=== PATIENT | male | born 1975 | race Caucasian/White ===

== ENCOUNTER 2022-07-22 08:36 | Outpatient (CLI) | payer OTHER, SELFPAY ==
[2022-07-22 12:31] LABS: Albumin* 4.1 g/dL (3.3-5.0); Chloride* 107 mmol/L (96-114)
[2022-07-22 12:32] LABS: Sodium* 136 mmol/L (135-149)
[2022-07-22 12:34] LABS: Bilirubin Total* 0.5 mg/dL (0.1-1.5); Blood Urea Nitrogen* 21 mg/dL (5-24); Carbon Dioxide* 25 mmol/L (20-32); Cholesterol* 254 mg/dL (90-199); Estimated Glomerular Filt Rate 92 ml/min; Total Protein* 6.5 g/dL (6.0-8.3)
[2022-07-22 12:35] LABS: Alanine Aminotransferase* 29 U/L (4-50); Alkaline Phosphatase* 73 U/L (40-150); Aspartate Amino Transferase* 44 U/L (12-35); Calcium* 9.1 mg/dL (8.4-10.6); Glucose* 105 mg/dL (60-115); HDL Cholesterol* 61 mg/dL (>=40); LDL Cholesterol Calculated 175 mg/dL (<100); Triglycerides* 88 mg/dL (40-149)
== END 2022-07-22 08:37 | disposition home or self-care (01) ==
PROVIDERS: PCP Family Medicine; Visit Provider Family Medicine
DX: Z00.00 Encounter for general adult medical examination without abnormal findings (principal); Z13.1 Encounter for screening for diabetes mellitus; Z13.6 Encounter for screening for cardiovascular disorders
CPT/HCPCS: 80053; 80061

== ENCOUNTER 2022-08-20 07:45 | Outpatient (CLI) | payer OTHER, SELFPAY | END 2022-08-20 07:46 | disposition home or self-care (01) | LOC: OP CLINIC 07:46 | PROVIDERS: PCP Family Medicine; Visit Provider Surgery | DX: Z12.11 Encounter for screening for malignant neoplasm of colon (principal); K63.5 Polyp of colon; Z80.0 Family history of malignant neoplasm of digestive organs | CPT/HCPCS: 45381; 45385; 88305; 99153; J1200; J2250; J3010 ==

== ENCOUNTER 2022-11-10 08:44 | Emergency (ER) | payer OTHER, SELFPAY ==
[2022-11-10 08:51] VITALS: BP 140/83; PULSE 70; TEMP 35.8; O2SAT 97; BMI 32.3
--- NOTE | 2022-11-10 09:10 | CRLHL7_ITS ---
For Patients: As a result of the Cures Act, medical imaging exams and procedure reports are released immediately into your electronic medical record. You may view this report before your referring provider. If you have questions, please contact your health care provider. INDICATION: Food stuck COMPARISON: None TECHNIQUE: Two views of the chest were acquired FINDINGS: TUBES AND LINES: None. HEART AND MEDIASTINUM: The heart size is normal. The mediastinal contour appears normal for patient age. LUNGS AND PLEURAL SPACES: The lungs appear normal.The pleural spaces are unremarkable. OSSEOUS STRUCTURES: Postoperative changes of the spine. No acute osseous findings. SOFT TISSUES: No visible foreign body regarding the possibility of aspirated or stuck food IMPRESSION: No evidence of active pulmonary disease. Dictated by Zan Thorpe MD @ 11/10/2022 9:30:37 AM (Electronically Signed)
[2022-11-10 09:29] LABS: Hematocrit 45.1 % (37.0-53.0); Hemoglobin* 14.6 gm/dL (13.5-17.5); Mean Corpuscular HGB Conc 32 gm/dL (32-36); Mean Corpuscular Hemoglobin 28 pg (26-34); Mean Corpuscular Volume 87 fL (80-100); Platelet Count* 211 K/uL (140-440); Red Blood Count 5.16 m/uL (4.30-5.90); White Blood Count* 8.02 K/uL (4.50-11.00)
[2022-11-10 09:30] LABS: Basophils Percent Auto 0.5 % (0.0-3.0); Eosinophils Percent Auto 1.5 % (0.0-7.0); Immature Granulocytes Pct Auto 0.1 %; Monocytes Percent Auto 6.1 % (0.0-11.0); Neutrophils Percent Auto 74.8 % (42.0-72.0); RDW Coefficient of Variation % 13.2 % (11.5-15.5); Slide Review Reflex No
[2022-11-10] MEDS: 0.9 % SODIUM CHLORIDE 1000 ml 1,000 ML IV (09:36)
[2022-11-10 09:46] VITALS: PULSE 88; O2SAT 98
[2022-11-10 09:54] LABS: Chloride* 109 mmol/L (96-114)
[2022-11-10 09:55] LABS: Albumin* 4.6 g/dL (3.3-5.0); Potassium* 4.4 mmol/L (3.6-5.1); Sodium* 142 mmol/L (135-149)
[2022-11-10 09:57] LABS: Carbon Dioxide* 25 mmol/L (20-32); Est. Creatinine Clearance* 80.64; Estimated Glomerular Filt Rate 92 ml/min
[2022-11-10 09:58] LABS: Alanine Aminotransferase* 24 U/L (4-50); Alkaline Phosphatase* 71 U/L (40-150); Aspartate Amino Transferase* 35 U/L (12-35); Bilirubin Direct* 0.2 mg/dL (0.0-0.5); Bilirubin Total* 0.6 mg/dL (0.1-1.5); Blood Urea Nitrogen* 13 mg/dL (5-24); Calcium* 9.1 mg/dL (8.4-10.6); Glucose* 108 mg/dL (60-115); Total Protein* 7.5 g/dL (6.0-8.3)
[2022-11-10 10:02] LABS: PCR FLU A Negative PCR FLU A (Negative); PCR FLU B Negative PCR FLU B (Negative); PCR RSV Negative PCR RSV (Negative)
[2022-11-10 10:04] LABS: INR 0.92 (0.91-1.10); Prothrombin Time 12.9 Seconds
[2022-11-10 10:04] LABS: SARS PCR* Negative SARS-CoV-2 (Negative)
[2022-11-10 10:05] LABS: Partial Thromboplastin Time* 27 Seconds (23-33)
[2022-11-10 10:14] VITALS: PULSE 64; O2SAT 98
[2022-11-10] MEDS: SIMETHICONE/SOD BICARB/CIT AC 1 EACH GRAN.EF.PK PO (11:11)
--- NOTE | 2022-11-10 11:11 | ED.NURSE ---
Gave pt coca cola to try and drink small sips. Pt spit coca cola back up. Pt took EZ gas with small amount of water, dislodged and swallowed food. Able to take water and swallow without issue now. notified.
[2022-11-10 12:00] VITALS: BP 126/84; PULSE 67; O2SAT 98
--- NOTE | 2022-11-10 16:31 | ED.ABDPAIN ---
HPI - Abdominal Pain General Date Seen: 11/10/22 Chief Complaint: Difficulty Swallowing Stated Complaint: Foreign object in esophagus Time Seen by Provider: 11/10/22 09:10 Source: patient Mode of arrival: ambulatory Limitations: no limitations History of Present Illness HPI narrative: Patient presents here after eating some pork last night, he feels a got stuck in his esophagus, he cannot swallow since this occurred, is spitting up all his spit. He has had this happen a couple times in the past, he has always been able after approximately 1 hour maybe drinking a little bit of Coke to pass it. This time however that he feels he cannot. He he cannot even drink water. History of heartburn, he does not use tobacco or tobacco products, uses occasional social drinking on the weekends, but not to excess. No previous history of upper endoscopy done. No history of weight loss fevers chills, is no current abdominal pain Related Data Previous Rx's Medication Instructions Recorded diazepam 5 mg tablet (Valium) 5 mg PO ONCE PRN anxiety #1 tab 08/05/22 Allergies Allergy/AdvReac Type Severity Reaction Status Date / Time Penicillins Allergy Verified 08/21/22 09:04 Review of Systems Status of ROS Reports: 10 or more systems reviewed and unremarkable except as noted in History and below PFSH PFS Medical History Hyperlipidemia Surgical History History of spinal fusion S/P ORIF (open reduction internal fixation) fracture S/P vasectomy Social History Narrative: The patient drinks alcohol on the weekends. He works construction. Smoking Status: Former smoker How often do you have a drink containing alcohol: 2-3 times a week How many standard drinks containing alcohol do you have on a typical day: 3 or 4 How often do you have six or more drinks on one occasion: Never AUDIT-C Alcohol total score: 4 Non-prescribed substance use: denies use Exam Narrative: Exam Narrative: Patient is seen in room 1, he is in no apparent distress. He is however spitting up, saliva. That is clear. Patient is speaking normally, no problem with slurring words, oriented x3. Head eyes ears nose and throat exam show equal pupils, no scleral icterus, extraocular muscles are normal, no facial droop, speech is normal, trachea normal and midline. Thyroid normal midline palpable not enlarged. Chest shows symmetrical rise bilaterally, normal auscultation with no wheezes, no increased work of breathing, no overt bruising or lesions seen, no tenderness is noted on auscultation. Heart sounds normal with no S3-S4 no murmurs clicks or gallops. Abdomen shows no obvious masses or hepatosplenomegaly, no organomegaly, bowel sounds are normal in all quadrants. No tenderness is noted also in all quadrants. Upper and lower extremities show normal power, normal range of motion, pulses are normal, sensations normal, fine motor movements are normal, pelvis is stable to rocking. Cervical spine shows normal range of motion, and palpably not tender. Thoracic spine shows normal range of motion, and palpably not tender, lumbar spine shows no tenderness to palpation percussion and is otherwise normal range of motion. Skin shows no rashes, petechiae or eccymosis. Const: Vital Signs, click to edit/add: Vital Signs - 24 hr 11/10/22 08:51 11/10/22 09:46 11/10/22 10:14 Temperature 96.5 F L Pulse Rate [Pulse Oximeter] 70 88 64 Blood Pressure [Ri t Upper Arm] 140/83 H Pulse Oximetry 97 98 98 Oxygen Delivery Me thod Room Air Room Air Room Air 11/10/22 12:00 Temperature Pulse Rate [Pulse Oximeter] 67 Blood Pressure [Ri ght Upper Arm] 126/84 Pulse Oximetry 98 Oxygen Delivery Me thod Room Air Course Course Hospital Course: IV was started, he receives some IV fluids, we gave him nitroglycerin x1, and some pop rocks. This call assist him to be able to swallow, he was eating, some bread, crackers, and drinking water without problems. I did talk to Dr. Polanco, from General surgery, she recommended sent for an endoscopy, I will place him on [facility] also. I explained to the patient, he needs to have the upper endoscopy for possible dilatation, order rule out carcinoma, is chronic heartburn can cause some bad issues. Vital Signs Vital signs: Initial Vital Signs Temperature 96.5 F L 11/10/22 08:51 Temperature Source Temporal Artery Scan 11/10/22 08:51 Pulse Rate 70 11/10/22 08:51 Blood Pressure 140/83 H 11/10/22 08:51 Blood Pressure Mean 102 11/10/22 08:51 Blood Pressure Position Sitting 11/10/22 08:51 Pulse Oximetry 97 11/10/22 08:51 Oxygen Delivery Method 11/10/22 08:51 Vital Signs Temperature 96.5 F L 11/10/22 08:51 Pulse Rate 70 11/10/22 08:51 Blood Pressure 140/83 H 11/10/22 08:51 Pulse Oximetry 97 11/10/22 08:51 Oxygen Delivery Method 11/10/22 08:51 Temperature 96.5 F L 11/10/22 08:51 Pulse Rate 67 11/10/22 12:00 Blood Pressure 126/84 11/10/22 12:00 Pulse Oximetry 98 11/10/22 12:00 Oxygen Delivery Method 11/10/22 12:00 MDM - Abdominal Pain MDM Narrative Medical decision making narrative: During this evaluation of this patient I considered multiple differential diagnosis is which included the life-threatening such as appendicitis, aortic aneurysm, mesenteric ischemia, bowel perforation, volvulus, and bowel obstruction. Other differential diagnosis is include but are not limited to cholecystitis, pancreatitis, hepatitis, gastritis, GERD, diverticulitis, peptic ulcer disease, pyelonephritis/UTI, renal colic/stone, testicular torsion as well as other acute scrotal processes, inflammatory bowel disease, as well as other etiologies Medical Records Attestation: I reviewed the patient's medical records. Lab Data Attestation: I reviewed the patient's lab results. Labs: Lab Results 11/10/22 11/10/22 11/10/22 Range/Units 09:00 09:00 09:00 WBC 8.02 (4.50-11.00) K/uL RBC 5.16 (4.30-5.90) m/uL Hgb 14.6 (13.5-17.5) gm/dL Hct 45.1 (37.0-53.0) % MCV 87 (80-100) fL MCH 28 (26-34) pg MCHC 32 (32-36) gm/dL RDW Coeff of Yolette 13.2 (11.5-15.5) % Plt Count 211 (140-440) K/uL Neut % (Auto) 74.8 H (42.0-72.0) % Lymph % (Auto) 17.0 L (20-44) % [place] % (Auto) 6.1 (0.0-11.0) % Eos % (Auto) 1.5 (0.0-7.0) % Baso % (Auto) 0.5 (0.0-3.0) % Neut # (Auto) 6.00 (1.7-7.0) K/uL Lymph # (Auto) 1.40 (0.90-2.90) K/uL [place] # (Auto) 0.50 (0.00-0.90) K/UL Eos # (Auto) 0.10 (0.00-0.50) K/uL Baso # (Auto) 0.00 (0.00-0.30) K/uL INR 0.92 (0.91-1.10) APTT 27 (23-33) Seconds Sodium 142 (135-149) mmol/L Potassium 4.4 (3.6-5.1) mmol/L Chloride 109 (96-114) mmol/L Carbon Dioxide 25 (20-32) mmol/L BUN 13 (5-24) mg/dL Creatinine 1.0 (0.5-1.5) mg/dL Estimated Creat Clear 80.64 Estimated GFR 92 ml/min Glucose 108 (60-115) mg/dL Calcium 9.1 (8.4-10.6) mg/dL Total Bilirubin 0.6 (0.1-1.5) mg/dL Direct Bilirubin 0.2 (0.0-0.5) mg/dL AST 35 (12-35) U/L ALT 24 (4-50) U/L Alkaline Phosphatase 71 (40-150) U/L Total Protein 7.5 (6.0-8.3) g/dL Albumin 4.6 (3.3-5.0) g/dL SARS-CoV-2 (PCR) Influenza Type A (PCR) (Negative) Influenza Type B (PCR) (Negative) RSV (PCR) (Negative) 11/10/22 11/10/22 Range/Units 09:03 09:10 WBC (4.50-11.00) K/uL RBC (4.30-5.90) m/uL Hgb (13.5-17.5) gm/dL Hct (37.0-53.0) % MCV (80-100) fL MCH (26-34) pg MCHC (32-36) gm/dL RDW Coeff of [place] (11.5-15.5) % Plt Count (140-440) K/uL Neut % (Auto) (42.0-72.0) % Lymph % (Auto) (20-44) % [place] % (Auto) (0.0-11.0) % Eos % (Auto) (0.0-7.0) % Baso % (Auto) (0.0-3.0) % Neut # (Auto) (1.7-7.0) K/uL Lymph # (Auto) (0.90-2.90) K/uL [place] # (Auto) (0.00-0.90) K/UL Eos # (Auto) (0.00-0.50) K/uL Baso # (Auto) (0.00-0.30) K/uL INR (0.91-1.10) APTT (23-33) Seconds Sodium (135-149) mmol/L Potassium (3.6-5.1) mmol/L Chloride (96-114) mmol/L Carbon Dioxide (20-32) mmol/L BUN (5-24) mg/dL Creatinine (0.5-1.5) mg/dL Estimated Creat Clear Estimated GFR ml/min Glucose (60-115) mg/dL Calcium (8.4-10.6) mg/dL Total Bilirubin (0.1-1.5) mg/dL Direct Bilirubin (0.0-0.5) mg/dL AST (12-35) U/L ALT (4-50) U/L Alkaline Phosphatase (40-150) U/L Total Protein (6.0-8.3) g/dL Albumin (3.3-5.0) g/dL SARS-CoV-2 (PCR) Cancelled Negative SARS-CoV-2 Influenza Type A (PCR) Negative PCR FLU A (Negative) Influenza Type B (PCR) Negative PCR FLU B (Negative) RSV (PCR) Negative PCR RSV (Negative) Imaging Data Chest x-ray: Attestation: I have reviewed the pertinent imaging results. My impression: No acute findings. Radiologist's impression: Patient: DEVIN CALIX Facility:?[facility] Patient ID:?[id number] Site Patient ID:?[id number]. Site :?[id number] Study:?XRay Chest 2V-11/10/2022 9:27:35 AM Ordering Physician:Cosme Montoya Final Report: INDICATION: Food stuck COMPARISON: None TECHNIQUE: Two views of the chest were acquired FINDINGS: TUBES AND LINES: None. HEART AND MEDIASTINUM: The heart size is normal. The mediastinal contour appears normal for patient age. LUNGS AND PLEURAL SPACES: The lungs appear normal.The pleural spaces are unremarkable. OSSEOUS STRUCTURES: Postoperative changes of the spine. No acute osseous findings. SOFT TISSUES: No visible foreign body regarding the possibility of aspirated or stuck food IMPRESSION: No evidence of active pulmonary disease. Dictated by Zan Thorpe MD @ 11/10/2022 9:30:37 AM Discharge Plan Discharge Clinical Impression: Esophageal obstruction due to food impaction, Chronic GERD Patient Disposition: Home, Self-Care Condition: Improved Instructions: Diet for Stomach Ulcers and Gastritis (ED), GERD (Gastroesophageal Reflux Disease) (DC), Indigestion (ED), Upper Endoscopy (DC) Additional Instructions: Home rest follow-up for endoscopy with results to be sent to your primary physician. Start the Prilosec 20 mg a day, take this routinely for the next month. I would avoidance of any sort of meat or things that might get stuck in her throat. Return here as needed, avoidance or slowing down on alcohol and also nonsteroidal anti-inflammatory drugs is suggested. Prescriptions: No Action diazepam [Valium] 5 mg tablet 5 mg PO ONCE PRN (Reason: anxiety) Qty: 1 0RF Rx Instructions: Take 1 pill 30-40 minutes prior to procedure. Follow Up/Referrals: Genie Polanco MD [Staff Physician] - Sesar Araiza MD [Staff Physician] - Tracie May MD [Staff Physician] - Ciera Allen DO [Primary Care Provider] - Stand Alone Forms: [facility] Info Instructions
== END 2022-11-10 12:08 | disposition home or self-care (01) ==
PROVIDERS: Emergency Provider Family Medicine; PCP Family Medicine
DX: T18.128A Food in esophagus causing other injury, initial encounter (principal); K21.9 Gastro-esophageal reflux disease without esophagitis
CPT/HCPCS: 36415; 71046; 80048; 80076; 85025; 85610; 85730; 87502; 87634; 87635; 99284; J7030

== ENCOUNTER 2022-12-25 06:55 | Outpatient (CLI) | payer OTHER, SELFPAY ==
[2022-12-25 07:32] LABS: SARS Antigen* negative (Negative)
== END 2022-12-25 06:56 | disposition home or self-care (01) ==
LOC: OP CLINIC 06:56
PROVIDERS: PCP Family Medicine; Visit Provider Internal Medicine
DX: R13.10 Dysphagia, unspecified (principal); K44.9 Diaphragmatic hernia without obstruction or gangrene
CPT/HCPCS: 43239; 87426; 88305; A9270; J2250; J3010

== ENCOUNTER 2023-08-21 14:11 | Emergency (ER) | payer OTHER, SELFPAY ==
[2023-08-21 14:16] VITALS: BP 144/77; PULSE 84; RESP 16; TEMP 36.3; O2SAT 98; BMI 33.9
--- NOTE | 2023-08-21 14:34 | ED_ITS ---
HPI - General Adult General Chief complaint: Ear/Nose/Throat Problem Stated complaint: Food stuck in esophagus Time Seen by Provider: 08/21/23 14:18 History of Present Illness HPI narrative: This 48-year-old male comes in reporting an inability to swallow since eating some food with chicken in it last evening. He states that he has had a problem like this in the past where he was unable to swallow and after taking glucagon and pop rocks he was able to push it through. He later had an upper endoscopy with the dilation apparently. He states that he ate this food last night and since then has been unable to swallow any liquids and is frequently spitting. His health is otherwise normal. Related Data Previous Rx's Medication Instructions Recorded diazepam 5 mg tablet (Valium) 5 mg PO ONCE PRN anxiety #1 tab 08/05/22 sod bicarb-citric ac-simeth 2.21 1 packet PO QID #50 ea 08/21/23 gram-1.53 gram/4 gram granules efferv (E-Z-Gas II) Allergies Allergy/AdvReac Type Severity Reaction Status Date / Time Penicillins Allergy Verified 08/21/23 14:19 Review of Systems Status of ROS: Reports: 10 or more systems reviewed and unremarkable except as noted in History and below Narrative: Constitutional: No fevers, no weight gain or loss. Eyes: No discharge. No vision changes. HENT: No congestion, no sore throat, no ear pain. Cardiovascular: No chest pain, no palpitations. Respiratory: No shortness of breath, no wheezes, no cough. Gastrointestinal: No abdominal pain, no vomiting, no diarrhea. Unable to swallow successfully with food bolus in the esophagus. Genitourinary: No dysuria, no hematuria. Musculoskeletal: Normal range of motion. Skin: No rashes, no pruritis. Neurological: No dizziness, weakness, sensory change, speech change. Endo/Heme/Allergies: No bruising or bleeding. No polydipsia. Pysch: no suicidality, no anxiety, no insomnia. All other systems reviewed and are negative. PFSH PFS Medical History Hyperlipidemia Surgical History History of spinal fusion S/P ORIF (open reduction internal fixation) fracture S/P vasectomy Social History Narrative: The patient drinks alcohol on the weekends. He works construction. Smoking Status: Former smoker How often do you have a drink containing alcohol: 2-3 times a week How many standard drinks containing alcohol do you have on a typical day: 3 or 4 How often do you have six or more drinks on one occasion: Never AUDIT-C Alcohol total score: 4 Non-prescribed substance use: denies use Exam Narrative: Exam Narrative: Constitutional: Well-developed, well-nourished, no acute distress. HEENT: Normocephalic, atraumatic. Neck: Normal range of motion. Nontender. Supple. Heart: Regular. No murmurs. Normal rate. Intact distal pulses. Lungs: Clear to auscultation. No chest discomfort. No wheezes, rhonchi, or rales. Abdomen: Normal bowel sounds. Nontender. No rebound tenderness. Genitalia: Deferred. Back: No midline tenderness. Normal range of motion. Extremities: Normal range of motion. No injury. Skin: Intact. No rash. Warm. No erythema or pallor. Neurologic: No altered sensation. No weakness. Alert and oriented. Psychiatric: No suicidality. No anxiety or depression. No insomnia. Nursing notes and vitals signs are reviewed. Const: Vital Signs, click to edit/add: Vital Signs - 24 hr 08/21/23 14:16 Temperature 97.4 F L Pulse Rate [Right Pulse Oximeter] 84 Respiratory Rate 16 Blood Pressure [Ri ght Upper Arm] 144/77 H Pulse Oximetry 98 Oxygen Delivery Me thod Room Air Course Vital Signs Vital signs: Initial Vital Signs Temperature 97.4 F L 08/21/23 14:16 Temperature Source Temporal Artery Scan 08/21/23 14:16 Pulse Rate 84 08/21/23 14:16 Respiratory Rate 16 08/21/23 14:16 Blood Pressure 144/77 H 08/21/23 14:16 Blood Pressure Mean 99 08/21/23 14:16 Blood Pressure Position Sitting 08/21/23 14:16 Pulse Oximetry 98 08/21/23 14:16 Oxygen Delivery Method Room Air 08/21/23 14:16 Vital Signs Temperature 97.4 F L 08/21/23 14:16 Pulse Rate 84 08/21/23 14:16 Respiratory Rate 16 08/21/23 14:16 Blood Pressure 144/77 H 08/21/23 14:16 Pulse Oximetry 98 08/21/23 14:16 Oxygen Delivery Method Room Air 08/21/23 14:16 Temperature 97.4 F L 08/21/23 14:16 Pulse Rate 84 08/21/23 14:16 Respiratory Rate 16 08/21/23 14:16 Blood Pressure 144/77 H 08/21/23 14:16 Pulse Oximetry 98 08/21/23 14:16 Oxygen Delivery Method Room Air 08/21/23 14:16 Medications Administered Medications: Discontinued Medications Generic Name Dose Route Start Last Admin Trade Name Stephen PRN Reason Stop Dose Admin Glucagon 1 mg 08/21/23 14:29 08/21/23 14:48 Glucagon,Human Recombinant 1 Mg/Ml Vial IV 08/21/23 14:30 Not Given ONCE ONE Simethicone/Sodium Bicarb/Citric Ac 1 each 08/21/23 14:29 08/21/23 14:47 Simethicone/Sod Bicarb/Cit Ac 1 Each Gran.Ef.Pk PO 08/21/23 14:30 1 each ONCE ONE Administration Medical Decision Making MDM Narrative Medical decision making narrative: This patient comes in with inability to swallow since eating food last evening. This is happened to him once in the past and he subsequently head and upper endoscopy with dilation. The patient has been attempting to push the food by swallowing hard but was unable to. He states that he had pop rocks in the past which worked for him. I ordered an IV with glucagon 1 mg and pop rocks. The IV was placed but he did not received glucagon. The pop rocks was successful in dislodging food. He is able to drink water without difficulty at this time. He is okay to be discharged home and follow-up as needed. Discharge Plan Discharge Clinical Impression: Food impaction of esophagus Patient Disposition: Home, Self-Care Condition: Improved Additional Instructions: Continue current plans. Make extra efforts to thoroughly chew food, especially meat, before swallowing. Follow up with MD or return if symptoms are recurrent. Prescriptions: New E-Z-Gas II 2.21-1.53 gram/4 gram granules, effervescent packet 1 packet PO QID Qty: 50 0RF Rx Instructions: place half of packet on back of tongue and swallow with 15 mL water; repeat with other half of packet No Action diazepam [Valium] 5 mg tablet 5 mg PO ONCE PRN (Reason: anxiety) Qty: 1 0RF Rx Instructions: Take 1 pill 30-40 minutes prior to procedure. Follow Up/Referrals: Ciera Allen DO [Primary Care Provider] - Stand Alone Forms: [facility] Info Instructions
[2023-08-21] MEDS: SIMETHICONE/SOD BICARB/CIT AC 1 EACH GRAN.EF.PK PO (14:47)
== END 2023-08-21 15:02 | disposition home or self-care (01) ==
PROVIDERS: Emergency Provider Emergency Medicine Emergency Medical Services; PCP Family Medicine
DX: T18.128A Food in esophagus causing other injury, initial encounter (principal)
CPT/HCPCS: 99283; 99284